=== PATIENT | female | born 1950 | race Caucasian/White ===

== ENCOUNTER 2022-08-14 10:29 | Inpatient (IN) | payer MEDICARE, OTHER ==
[~2022-08-14] VITALS: Ht 172.7 cm; Wt 77.4 kg
[2022-08-14] MEDS ORDERED: AMLODIPINE BESYL5 MG PO (12:35)
[2022-08-14] MEDS ORDERED: OMEP20ER PO (12:36)
[2022-08-14] MEDS ORDERED: NEURONTIN300 MG PO (12:37)
[2022-08-14] MEDS ORDERED: JANTOVEN5 M2 PO (12:39)
[2022-08-14 12:59] VITALS: BP 144/71
--- NOTE | 2022-08-14 13:21 | NUR ---
Dr. Wild here to see the patient.
[2022-08-14 14:50] VITALS: BP 140/69
--- NOTE | 2022-08-14 15:00 | NUR ---
AMBULATORY to the bathroom with staff assistance.
[2022-08-14 15:08] LABS: Base Excess Venous 2.5 mmol/L; Bicarbonate Venous 25.4 mmol/L (24.0-30.0); PCO2 Venous 46.8 mmHg (38-42); pH Blood Venous 7.38 (7.34-7.37)
[2022-08-14 20:00] VITALS: BP 130/77
[2022-08-15] VITALS: BP 133/73
[2022-08-15 05:30] VITALS: BP 132/73
[2022-08-15 06:06] LABS: BASOPHILS ABSOLUTE AUTO 0.05 K/mm3 (0.00-0.23); BASOPHILS PERCENT AUTO 0 % (0-2); EOSINOPHILS ABSOLUTE AUTO 0.05 K/mm3 (0.00-0.68); EOSINOPHILS PERCENT AUTO 0 % (0-6); Hematocrit 33.8 % (33.0-51.0); Hemoglobin 11.5 g/dL (11.5-16.0); IMMATURE GRAN ABSOLUTE AUTO 0.17 K/mm3 (0.00-0.10); IMMATURE GRAN PERCENT AUTO 1 % (0-1); LYMPHOCYTES ABSOLUTE AUTO 1.54 K/mm3 (0.84-5.20); LYMPHOCYTES PERCENT AUTO 8 % (21-46); MONOCYTES ABSOLUTE AUTO 0.75 K/mm3 (0.16-1.47); MONOCYTES PERCENT AUTO 4 % (4-13); Mean Corpuscular HGB 27.9 pg (26.0-34.0); Mean Corpuscular Volume 82 fL (80-100); Mean Platelet Volume 9.7 fL (9.1-12.4); NEUTROPHILS ABSOLUTE AUTO 16.17 K/mm3 (1.96-9.15); NEUTROPHILS PERCENT AUTO 86 % (41-73); Platelet Count 293 K/mm3 (150-400); RDW Coefficient Variation 15.4 % (11.7-14.2); RDW Standard Deviation 46.4 fL (35.1-46.3); Red Blood Cell Count 4.12 M/mm3 (3.80-5.20); White Blood Cell Count 18.73 K/mm3 (4.00-11.30)
[2022-08-15 06:27] LABS: Albumin/Globulin Ratio 0.4 (0.8-1.8); Bilirubin, Total 0.6 mg/dL (0.1-1.0); Bun/Creatinine Ratio 16.2 (12.0-20.0); Calcium, Blood 8.6 mg/dL (8.5-10.1); Creatinine, Blood 0.8 mg/dL (0.40-1.00); Globulin, Blood 4.5 g/dL (2.2-4.0); Potassium, Blood 4.1 mmol/L (3.5-5.5); Total Protein, Blood 6.5 g/dL (6.4-8.2)
--- NOTE | 2022-08-15 06:31 | NUR ---
SHIFT SUMMARY PT REMAINS A&O X4. RESPONDING APPROPRIATELY TO QUESTIONS AND CONVERSATION. VSS T/O SHIFT. PT DENIES CP OR PRESSUE. PT REPORTS PAIN IN R UPPER "ABDOMEN"; 08/12. MEDICATED PER EMAR, WITH RELIEF. PT NAUSEOUS T/O SHIFT W/O EMESIS. MEDICATION PER EMAR, WHICH SEEMED TO HELP RELIEVE. PT UP TO RESTROOM W/1-2 PERSON ASSIST AND GAIT BELT. PT TOLERATED FAIR, SOB W/EXERTION SPO2 MAINTAINED. PT RECOVERS WELL. PT A LITTLE UNSTEADY DURING INITIAL AMBULATION BUT THEN IMPROVES. PT EDUCATED ON CURRENT ILLNESS, POSSIBLE PROCEDURE AND HIDA SCAN IN AM. PT HAS BEEN NPO SINCE 0300. NO ACUTE CHANGES THROUGH SHIFT. WILL UPDATE ONCOMING RN
[2022-08-15 07:32] VITALS: BP 148/82
[2022-08-15 12:09] VITALS: BP 122/72
[2022-08-15 13:38] LABS: International Normalized Ratio 1.09; Prothrombin Time Results 11.4 Sec (9.7-11.5)
[2022-08-15 18:19] VITALS: BP 145/76
--- NOTE | 2022-08-15 19:29 | NUR ---
SHIFT SUMMARY PT ALERT AND ORIENTED X 4. HR STABLE. BP STABLE. NO CP OR PRESSURE. OXYGEN SATURATION MAINTAINED ABOVE 92% ON RA-2L VIA NC. PT TO HYDA SCAN AND CT THIS AM. PT HAD DRAIN PLACED D/T ACUTE ALDO. NO LAP ALDO PERFORMED D/T PT HAVING ACTIVE COVID. PT TOLERATED PROCEDURE WELL IN CT SCAN. VSS. PT REPORTS PAIN IN R UPPER ABD. MEDICATED PER EMAR. NS AT 125 ML/HR THROUGH MEDIPORT. PT SBA TO BATHROOM. USES CALL LIGHT APPROPRIATELY. PT BACK FROM CT THIS EVENING, DRAIN AT R UPPER ABD. SITE CLEANED AND TEGARDERM PLACED. MINIMAL BROWN FLUID IN COLLECTION CHAMBER. REPORT GIVEN TO KIRILL MORENO.
[2022-08-15 20:00] VITALS: BP 131/70
[2022-08-16] VITALS: BP 132/68
[2022-08-16 04:00] VITALS: BP 132/69
--- NOTE | 2022-08-16 06:31 | NUR ---
SHIFT SUMMARY PT REMAINS A&o X4. NO ACUTE CHANGES THROUGHOUT THIS SHIFT. VSS. PT STILL HAVING ABDOMINAL PAIN 5-6/10; MEDICATION PER EMAR W/RELIEF. PT REPORTED NAUSEA ONCE DURING THE SHIFT W/OUT EMESIS. DRAIN IN PLACE, SITE C/D/I. PT HAD 50 MLS OF PURULENT DRAINAGE OUT, WITH SMALL AMOUNT OF BLOOD TINGE. PT SLEPT WELL ON AND OFF THROUGHOUT THE NIGHT. PT UP TO RESTROOM W/ASSISTANCE FOR SAFETY AND CORD MANAGEMENT. NO BM THIS SHIFT. NO OTHER CHANGES. WILL UPDATE ONCOMING RN
[2022-08-16 07:16] VITALS: BP 138/75
--- NOTE | 2022-08-16 11:31 | NUR ---
PT UPDATE/TRANSFER PT ALERT AND ORIENTED. VSS. MINIMAL DRAINAGE IN COLLECTION CHAMBER. SITE WNL. NO HEMATOMA. SMALL AMOUNT OF BLOOD IN TUBING WITH BROWN/GREEN DRAINAGE. PT REPORTS PAIN IN ABD. MEDICATED PER EMAR. OXYGEN SATURATION MAINTAINED ABOVE 92% ON 1-2 L VIA NC. NO CP OR PRESSURE REPORTED. PT TO TRANSFER TO ROOM 341 AFTER REPORT GIVEN TO RN. PT AWARE OF TRANFER. WILL CONT TO MONITOR.
[2022-08-16 12:39] VITALS: BP 140/71
--- NOTE | 2022-08-16 12:39 | NUR ---
PT ARRIVED TO MED FLOOR FROM PCU AT THIS TIME PT A&OX4, ORIENTATED TO ROOM-VSS. SBA. PT APPEARS ANX. ABOUT TRANSFER, ALL QUESTIONS ANSWERED UPON ARRIVAL. CHOLEY TUBE DRAINING BROWN/GREEN FLUID.
[2022-08-16 15:35] VITALS: BP 147/76
--- NOTE | 2022-08-16 17:19 | NUR ---
PT REPORTS AUDITORY HALLUCINATION "SINCE SHES HAD COVID" PT STATES " I HEAR PEOPLE TALKING ABOUT MY DOG" PT APPEARS CALM. SHE STATES THAT SHE KNOWS IT IS NOT REAL, DENIES HX. OF HALLUCINATION. REPORTED TO
--- NOTE | 2022-08-16 18:32 | NUR ---
Review of pt with staff. Will follow up tomorrow aon prognoisis and plan of care.
[2022-08-16 19:28] VITALS: BP 135/69
[2022-08-17 03:12] VITALS: BP 122/66
--- NOTE | 2022-08-17 04:14 | NUR ---
SUMMARY: PATIENT PLACED ON O2 OVERNIGHT SHE DROPPED IN MID 80S WHILE SHE WAS SLEEPING. IV PAIN MEDS GIVEN PER EMAR. PATIENT REPORTS A LOT OF PAIN. DRAIN IN PLACE WITH PADILLA/RED DRAINAGE. AMBULATED TO BATHROOM 1X ASSIST.
[2022-08-17 05:05] LABS: BASOPHILS ABSOLUTE AUTO 0.05 K/mm3 (0.00-0.23); BASOPHILS PERCENT AUTO 0 % (0-2); EOSINOPHILS ABSOLUTE AUTO 0.24 K/mm3 (0.00-0.68); EOSINOPHILS PERCENT AUTO 2 % (0-6); Hemoglobin 10.5 g/dL (11.5-16.0); IMMATURE GRAN ABSOLUTE AUTO 0.07 K/mm3 (0.00-0.10); IMMATURE GRAN PERCENT AUTO 1 % (0-1); LYMPHOCYTES ABSOLUTE AUTO 1.21 K/mm3 (0.84-5.20); LYMPHOCYTES PERCENT AUTO 10 % (21-46); MONOCYTES ABSOLUTE AUTO 0.97 K/mm3 (0.16-1.47); MONOCYTES PERCENT AUTO 8 % (4-13); Mean Corpuscular HGB 27.3 pg (26.0-34.0); Mean Corpuscular HGB Conc 32.8 g/dL (31.5-36.5); Mean Corpuscular Volume 83 fL (80-100); Mean Platelet Volume 9.9 fL (9.1-12.4); NEUTROPHILS ABSOLUTE AUTO 9.26 K/mm3 (1.96-9.15); NEUTROPHILS PERCENT AUTO 79 % (41-73); Platelet Count 335 K/mm3 (150-400); RDW Coefficient Variation 15.5 % (11.7-14.2); RDW Standard Deviation 47.2 fL (35.1-46.3); Red Blood Cell Count 3.84 M/mm3 (3.80-5.20)
[2022-08-17 05:27] LABS: Bun/Creatinine Ratio 7.7 (12.0-20.0); Calcium, Blood 8.6 mg/dL (8.5-10.1); Creatinine, Blood 0.78 mg/dL (0.40-1.00); Potassium, Blood 3.1 mmol/L (3.5-5.5)
[2022-08-17 07:45] VITALS: BP 134/70
[2022-08-17 15:38] VITALS: BP 126/70
--- NOTE | 2022-08-17 16:06 | NUR ---
SHIFT SUMMARY PATIENT IS ALERT AND ORIENTED. PATIENT HAS HAD NO ACUTE EVENTS THIS SHIFT. VITAL SIGNS REVIEWED. PATIENT HAS NOT COMPLAINED OF NAUSEA, SOB OR VOMITTING THIS SHIFT. PATIENTS PAIN MEDICATION HAS CHANGED Q3 AND PATIENT HAS REQUESTED PAIN MEDS CONSISTENTLY. PATIENT HAS BEEN RESTING MOST OF DAY. PATIENT HAS BEEN GIVEN EDUCATION ON DRAIN. PATIENT IS PLANNING ON DISCHARGING TOMORROW. BED IN LOCKED AND LOWEST POSITION. CALL LIGHT IN PLACE. WILL MONITOR UNTIL SHIFT CHANGE.
[2022-08-17 19:34] VITALS: BP 155/77
[2022-08-18 02:57] VITALS: BP 143/83
[2022-08-18 05:17] LABS: BASOPHILS ABSOLUTE AUTO 0.05 K/mm3 (0.00-0.23); BASOPHILS PERCENT AUTO 1 % (0-2); EOSINOPHILS PERCENT AUTO 3 % (0-6); Hematocrit 32.2 % (33.0-51.0); Hemoglobin 10.7 g/dL (11.5-16.0); IMMATURE GRAN ABSOLUTE AUTO 0.05 K/mm3 (0.00-0.10); IMMATURE GRAN PERCENT AUTO 1 % (0-1); LYMPHOCYTES ABSOLUTE AUTO 1.32 K/mm3 (0.84-5.20); LYMPHOCYTES PERCENT AUTO 14 % (21-46); MONOCYTES ABSOLUTE AUTO 0.79 K/mm3 (0.16-1.47); MONOCYTES PERCENT AUTO 9 % (4-13); Mean Corpuscular HGB 27.4 pg (26.0-34.0); Mean Corpuscular HGB Conc 33.2 g/dL (31.5-36.5); Mean Corpuscular Volume 83 fL (80-100); Mean Platelet Volume 9.7 fL (9.1-12.4); NEUTROPHILS ABSOLUTE AUTO 6.65 K/mm3 (1.96-9.15); NEUTROPHILS PERCENT AUTO 73 % (41-73); Platelet Count 332 K/mm3 (150-400); RDW Coefficient Variation 15.4 % (11.7-14.2); RDW Standard Deviation 46.6 fL (35.1-46.3); White Blood Cell Count 9.16 K/mm3 (4.00-11.30)
[2022-08-18 05:53] LABS: Creatinine, Blood 0.67 mg/dL (0.40-1.00); Potassium, Blood 3.4 mmol/L (3.5-5.5)
[2022-08-18 08:34] VITALS: BP 137/76
[2022-08-18 15:51] VITALS: BP 134/74
--- NOTE | 2022-08-18 17:00 | NUR ---
PATIENT IS ALERT AND ORIENTED AND COOPERATIVE WITH CARE. TELEPHONE INFORMATION SUPERVISOR REPORTS THAT THE PATIENT WAS HALLUCINATING THIS AFTERNOON, SEEING KITTENS ON THE FLOOR. PATIENT C/O ABDOMINAL PAIN, MEDICATED PER EMAR. 1PA TO THE BATHROOM WITH FWW. ON RA THIS SHIFT IT O2 SATURATION OF 96%. WILL CONTINUE TO MONITOR
[2022-08-18 19:40] VITALS: BP 141/75
[2022-08-19 02:16] VITALS: BP 142/88
[2022-08-19 05:24] VITALS: BP 143/77
[2022-08-19 08:38] VITALS: BP 135/82
--- NOTE | 2022-08-19 19:10 | NUR ---
SHIFT SUMMARY PT A&OX4 AND PLEASANT. PT C/O OF PAIN IN ABD THAT WAS WORSE THAN DAY BEFORE. MEDICATED PER EMAR. PT OFFERED HEAT OR ICE PACK BUT DECLINED STATING THEY DID NOT OFFER MUCH RELIEF. PT ALSO REPORTED IN AM THAT SHE HAD NOT HAD A BM FOR FOUR DAYS AND WAS NOT PASSING GAS. PT WAS ABLE TO HAVE A SMALL BM TODAY AND REPORTS PASSING SOME GAS. BOWEL CARE ORDERS GIVEN BY DR. PARIS. PT HAD VERY LITTLE APPETITE TODAY. PT TO HAVE CT SCAN OF ABD TOMORROW. PT ABLE TO MAKE NEEDS KNOWN. BED IN LOWEST POSITION AND CALL LIGHT IN REACH.
[2022-08-19 19:58] VITALS: BP 123/73
[2022-08-20 01:31] VITALS: BP 163/93
[2022-08-20 05:37] LABS: Bun/Creatinine Ratio 5.6 (12.0-20.0); Calcium, Blood 9.1 mg/dL (8.5-10.1); Creatinine, Blood 0.71 mg/dL (0.40-1.00); Potassium, Blood 3.9 mmol/L (3.5-5.5)
--- NOTE | 2022-08-20 06:36 | NUR ---
SUMMARY: SCANT AMOUNT OF DRAINAGE IN BAG OVERNIGHT. PAIN MEDS GIVEN PER EMAR. PATIENT ON RA. PATIENT TO CT SCAN THIS AM.
--- NOTE | 2022-08-20 09:00 | NUR ---
pt laying in bed awake a/ox3, cooperative with care, follows commands well, reports right side pain, lungs are clear dim t/o, may have faint exp wheeze at the end of exp, on r/a, no cough noted or reported, hrr, no edema noted, pp +1, cap refill <3sec, vs stable, afebrile, iv site is mediport to rcw, and piv to lac sites are clear and patent, mediport infusing tko, btx4, abd flat soft nontender, has drain to right flank, voids without diff, skin c/w/d, leighton, augustus, call light in reach.
[2022-08-20 13:10] LABS: Alanine Aminotransfer (ALT/SGP 15 U/L (12-78); Albumin, Blood 1.9 g/dL (3.4-5.0); Albumin/Globulin Ratio 0.4 (0.8-1.8); Alk Phos 119 U/L (50-136); Aspartate Aminotrans (AST/SGOT 24 U/L (12-37); Bilirubin, Direct <0.1 mg/dL (0.0-0.3); Bilirubin, Indirect Unable to Calculate mg/dL (0.1-0.7); Bilirubin, Total 0.2 mg/dL (0.1-1.0); Globulin, Blood 4.8 g/dL (2.2-4.0); Total Protein, Blood 6.7 g/dL (6.4-8.2)
--- NOTE | 2022-08-20 18:44 | NUR ---
Pt having pain on right side, asking for pain meds regularly, no further changes this shift call light in reach.
[2022-08-20 20:24] VITALS: BP 127/72
[2022-08-21 02:15] VITALS: BP 136/84
[2022-08-21 05:34] LABS: BASOPHILS ABSOLUTE AUTO 0.07 K/mm3 (0.00-0.23); BASOPHILS PERCENT AUTO 1 % (0-2); EOSINOPHILS ABSOLUTE AUTO 0.36 K/mm3 (0.00-0.68); EOSINOPHILS PERCENT AUTO 4 % (0-6); Hematocrit 32.8 % (33.0-51.0); Hemoglobin 10.8 g/dL (11.5-16.0); IMMATURE GRAN ABSOLUTE AUTO 0.09 K/mm3 (0.00-0.10); IMMATURE GRAN PERCENT AUTO 1 % (0-1); LYMPHOCYTES ABSOLUTE AUTO 1.74 K/mm3 (0.84-5.20); LYMPHOCYTES PERCENT AUTO 19 % (21-46); MONOCYTES ABSOLUTE AUTO 0.67 K/mm3 (0.16-1.47); MONOCYTES PERCENT AUTO 7 % (4-13); Mean Corpuscular HGB 27.1 pg (26.0-34.0); Mean Corpuscular HGB Conc 32.9 g/dL (31.5-36.5); Mean Corpuscular Volume 82 fL (80-100); Mean Platelet Volume 9.6 fL (9.1-12.4); NEUTROPHILS ABSOLUTE AUTO 6.24 K/mm3 (1.96-9.15); NEUTROPHILS PERCENT AUTO 68 % (41-73); Platelet Count 394 K/mm3 (150-400); RDW Coefficient Variation 15.3 % (11.7-14.2); RDW Standard Deviation 46.4 fL (35.1-46.3); Red Blood Cell Count 3.99 M/mm3 (3.80-5.20); White Blood Cell Count 9.17 K/mm3 (4.00-11.30)
[2022-08-21 06:08] LABS: Albumin, Blood 1.9 g/dL (3.4-5.0); Albumin/Globulin Ratio 0.4 (0.8-1.8); Bilirubin, Total 0.3 mg/dL (0.1-1.0); Calcium, Blood 8.7 mg/dL (8.5-10.1); Creatinine, Blood 0.67 mg/dL (0.40-1.00); Globulin, Blood 4.3 g/dL (2.2-4.0); Total Protein, Blood 6.2 g/dL (6.4-8.2)
[2022-08-21 07:59] VITALS: BP 131/78
[2022-08-21] MEDS ORDERED: XARELTO20 MG PO (11:45)
[2022-08-21] MEDS ORDERED: Norco 5-325 Ta1 EACH PO (11:45)
[2022-08-21] MEDS ORDERED: ONDA4 PO (11:45)
[2022-08-21] MEDS ORDERED: VISBIOME 112.51 EACH PO (11:46)
[2022-08-21] MEDS ORDERED: POTCHL20ER PO (11:46)
[2022-08-21] MEDS ORDERED: AMOCLA875 PO (11:46)
--- NOTE | 2022-08-21 16:38 | NUR ---
NOTES/DISCHARGE SUMMARY: PATIENT A&OX4. CALM, PLEASANT AND COOPERATIVE c CARE. USES CALL LIGHT APPROPRIATELY AND ABLE TO MAKE NEEDS KNOWN. PATIENT REPORTS PAIN 6-8/10 TO R UPPER ABDOMEN. PAIN TREATED PER EMAR c ADEQUATE RELIEF. BILARY DRAINAGE TO R UPPER QUADRANT OF ABDOMEN c SCANT AMOUNT OF DRAINAGE YELLOWISH AND SLIGHT TINGE BLOOD. MEDIPORT INFUSING TKO. L PIV SALINE LOCKED. PATIENT AMBULATES TO BATHROOM AND BACK IN BED c SBA. RECEIVED SCHEDULED MEDS PER EMAR. VITAL SIGNS REVIEWED. PORT DEACCESS FLUSHED c HEPARIN PER ORDER. L PIV DC'D. PATIENT DISCHARGE HOME. DISCHARGE INSTRUCTION PACKET GIVEN TO PATIENT. EDUCATE PATIENT REGARDING ADMITTING DX, S/S, TX, BILARY DRAIN CARE AND NEW PRESCRIBED MEDS. PATIENT STATED UNDERSTANDING AND NO FURTHER QUESTIONS. RX WAS FAXED TO PATIENT PREFERRED PHARMACY ([facility]). [facility] HARD SCRIPTS WERE SENT WITH THE PATIENT. ALL PATIENT PERSONAL BELONGINGS WERE SENT HOME WITH THE PATIENT PATIENT LEFT THE ROOM AT AROUND 1633. PATIENT WAS TRANSPORTED VIA WHEELCHAIR TO PATIENT ENTRANCE OF WERE THE SPOUSE VEHICLE BY [employer]TELLIGENCE OFFICER STAFFJANELLE.
== END 2022-08-21 16:35 | disposition home health service (06) | DRG 871 ==
LOC: PCU 10:29 → MEDS 12:26 → ENPENDDIS 08-21 10:06 → MEDS 08-21 16:35
PROVIDERS: Family Medicine; ADMIT Internal Medicine
PROC: 3E03329 Introduction of Other Anti-infective into Peripheral Vein, Percutaneous Approach (ICD-10-PCS; 2022-08-14)
PROC: 8E0ZXY6 Isolation (ICD-10-PCS; 2022-08-14)
PROC: 0F9430Z Drainage of Gallbladder with Drainage Device, Percutaneous Approach (ICD-10-PCS; principal; 2022-08-15)
DX: A41.51 Sepsis due to Escherichia coli [E. coli] (principal); K75.0 Abscess of liver; U07.1 COVID-19; C56.9 Malignant neoplasm of unspecified ovary; K81.0 Acute cholecystitis; J91.0 Malignant pleural effusion; K82.0 Obstruction of gallbladder; R65.20 Severe sepsis without septic shock; E87.6 Hypokalemia; K21.9 Gastro-esophageal reflux disease without esophagitis; I10 Essential (primary) hypertension; K82.A1 Gangrene of gallbladder in cholecystitis; K83.8 Other specified diseases of biliary tract; D64.9 Anemia, unspecified; Z87.442 Personal history of urinary calculi; Z86.718 Personal history of other venous thrombosis and embolism; Z90.710 Acquired absence of both cervix and uterus; Z87.891 Personal history of nicotine dependence; Z86.711 Personal history of pulmonary embolism; Z85.820 Personal history of malignant melanoma of skin; Z98.890 Other specified postprocedural states; Z88.5 Allergy status to narcotic agent; Z79.01 Long term (current) use of anticoagulants; Z79.899 Other long term (current) drug therapy
CPT/HCPCS: 36415; 49405; 74177; 78226; 80048; 80053; 80076; 82803; 82947; 84132; 85025; 85610; 85730; 87070; 87075; 87077; 87186; 94640; 94664; 94760; 94762; A9270; A9537; J0696; J1170; J1642; J1885; J2405; J7030; J7050; Q9967